=== PATIENT | male | born 1970 | race Caucasian/White ===

== ENCOUNTER → 2020-12-11 | Outpatient (CLI) | payer OTHER ==
--- NOTE | 2020-12-11 10:25 | RAD ---
Exam: Right Upper Quadrant Ultrasound 12/11/2020 8:45 AM Indication: Reason: RUQ PAIN / Spl. Instructions: / History: Technique: Multiple realtime grayscale sonographic images were obtained over the abdomen. Static imag es were submitted for interpretation. Comparisons: None Findings: Pancreas is nonvisualized secondary overlying gas filled bowel. Partially visualized IVC is unremarkable. Aorta is poorly visualized. Liver is top normal in size measuring 17.9 cm longitudinal ly. No focal hepatic lesions are identified. Portal venous flow appears to be in the normal direction . There is a somewhat poorly visualized, cystic structure in the gallbladder fossa measuring 3.3 x 1.9 x 2.0 cm. The patient reports a history of cholecystectomy. Common bile duct measures 7 mm in diamete r which can be normal following removal of gallbladder. This could be mildly dilated of the gallbladd er remains present. Tenderness during evaluation of the right upper quadrant noted. The right kidney is normal in appearance measuring 11.5 cm in length. No intra-abdominal hepatic biliary ductal dilatation is identified. No focal hepatic lesions are seen . IMPRESSION: 1. Somewhat limited exam 2. Cystic structure in the gallbladder fossa, within the ultrasound similar to the gallbladder. Patie nt however reports cholecystectomy. Possible dilatation of the common bile duct to 7 mm also noted. R ecommend review of surgical records if available, correlation with serum bilirubin levels, and consid eration of contrast enhanced CT of the abdomen for further evaluation. Electronically signed by: Fidel De Leon MD (12/11/2020 10:23 AM) [id number]
== END ==
LOC: US 08:41 → EEVIPCON 09:00
PROVIDERS: ATTEND Preventive Medicine Occupational Medicine
DX: R10.11 Right upper quadrant pain (principal); Z90.49 Acquired absence of other specified parts of digestive tract
CPT/HCPCS: 76705

== ENCOUNTER → 2021-01-02 | Day surgery (SDC) | payer OTHER ==
[~2021-01-02] MED LIST: ATOR10TA60 PO; GLYCOPYRROLATE 1 MG/5 ML VIAL. ONE; IPRATRPIUM/ALBUTEROL 0.5/2.5MG 3 ML NEBU. NEB PRN; IV RINGERS SOLUTION,LACTATED 1,000 ML IV SCH; LEVE500T21 PO; LEVO25TA4 PO; LIDOCAINE 2% PF 5 ML VIAL. ONE; LISI20TA18 PO; MIDAZOLAM HCL PF 2 MG/2 ML VIAL. IV ONE; OMEP40CA7 PO; ONDANSETRON PF 4 MG/2 ML VIAL. IV PRN; PROPOFOL 10,000 MCG/ML (20ML) VIAL IV ONE; SUCR1TAB PO
[2021-01-02 13:02] VITALS: BP 126/78
--- NOTE | 2021-01-07 18:06 | PATHOLOGY ---
[facility] Accession Number: [id number] . 01 Material submitted: . PART A: stomach - ANTRUM GASTRITIS BIOPSY PART B: esophagus - DISTAL ESOPHAGUS BIOPSY. Modifiers: distal PART C: sigmoid colon - SIGMOID POLYP . 01 Clinical history: . EGD AND COLONOSCOPY RUQ PAIN SCREENING EGD WITH BIOPSY COLONOSCOPY . 02 Diagnosis: A. Gastric biopsies, antrum: - Chronic gastritis, mild. . B. Esophageal biopsies, distal esophagus: - Reflux esophagitis. . C. Colon biopsy, sigmoid polyp: - Hyperplastic polyp. (JPM:raghu; 01/07/2021) [facility] [place] [facility] [place] 1207 Local . 02 Comment: Sections of the gastric antral biopsy show congestion and mild chronic inflammation. A properly controlled immunoperoxidase stain for Helicobacter is negative for Helicobacter organisms. . Sections of the distal esophageal biopsy reveal segments of hyperplastic squamous esophageal mucosa and esophagogastric mucosa showing moderate chronic inflammation. The findings are consistent with reflux esophagitis. There is no evidence of Martinez's change, dysplasia, or malignancy. . Sections of the sigmoid colon biopsy reveal a hyperplastic polyp. (JPM:raghu; 01/07/2021) . . Special stain performed: Immunoperoxidase stain for Helicobacter on A1 . 02 Electronically signed: . Les Mir MD, Pathologist NPI- [id number] . 01 Gross description: . A. The specimen is received in formalin, labeled "Hua Mosqueda, antrum gastritis biopsy" received as 2 fragments of soft cornejo tissue measuring up to 0.4 cm. Entirely submitted in A1. . B. The specimen is received in formalin, labeled "Hua Mosqueda, distal esophagus biopsy" received as 2 fragments of soft cornejo tissue measuring up to 0.2 cm. Entirely submitted in B1. . C. The specimen is received in formalin, labeled "Panda, Hua, sigmoid polyp" received as one fragment of soft cornejo tissue measuring up to 0.3 cm. Entirely submitted in C1. ([facility]; 01/06/2021) NAREN/NAREN 01/07/2021 1203 Local . 02 Pathologist provided ICD-10: K29.50, K21.00, K63.5 . 02 CPT . 291008, 634504, [id number], [id number] Specimen Comment: A courtesy copy of this report has been sent to [phone] Specimen Comment: Report sent to Performed at: 01 [facility] [address], [place] [id number] MD Abundio Gonzales MD Phone: [phone] Performed at: 02 [facility] [address] [place], [place] [id number] MD Les Mir MD Phone: [phone]
== END | disposition home or self-care (01) ==
LOC: SURG 10:30
PROVIDERS: ATTEND Internal Medicine Gastroenterology
DX: Z12.11 Encounter for screening for malignant neoplasm of colon (principal); R10.11 Right upper quadrant pain; R12 Heartburn; K22.8 Other specified diseases of esophagus; K21.00 Gastro-esophageal reflux disease with esophagitis, without bleeding; K29.50 Unspecified chronic gastritis without bleeding; K63.5 Polyp of colon; K64.1 Second degree hemorrhoids; K63.89 Other specified diseases of intestine; I10 Essential (primary) hypertension; Z88.6 Allergy status to analgesic agent; Z88.0 Allergy status to penicillin; Z86.19 Personal history of other infectious and parasitic diseases; Z79.899 Other long term (current) drug therapy; Z90.49 Acquired absence of other specified parts of digestive tract
CPT/HCPCS: 43239; 45380; 88305; 88342; J2001; J2704; J3490; J7120